=== PATIENT | female | born 2005 | race African-American/Black ===

== ENCOUNTER 2024-04-26 11:19 | Emergency (ER) | payer SELFPAY ==
[~2024-04-26] VITALS: Ht 170.2 cm; Wt 71.8 kg
[2024-04-26 11:20] VITALS: BP 115/69; TEMP 97.9; O2SAT 100
[2024-04-26] MEDS ORDERED: ONDA-282 PO (14:06)
[2024-04-26] MEDS: ONDANSETRON 4MG ORAL DISINTEGRATING TAB PO ONE (14:07)
== END 2024-04-26 14:12 | disposition home or self-care (01) ==
LOC: M ED 11:19
DX: R11.2 Nausea with vomiting, unspecified (principal); R19.7 Diarrhea, unspecified; A05.9 Bacterial foodborne intoxication, unspecified; J45.909 Unspecified asthma, uncomplicated; Z79.83 Long term (current) use of bisphosphonates; Z87.42 Personal history of other diseases of the female genital tract

== ENCOUNTER → 2024-08-14 | Outpatient (REF) ==
[~2024-08-14] MED LIST: ONDA-282 PO
== END ==
LOC: M EMP 08:33
PROVIDERS: ATTEND Family Medicine
DX: Z11.52 Encounter for screening for COVID-19 (principal)

== ENCOUNTER → 2024-09-28 | Outpatient (REF) | LOC: M EMP 07:47 | PROVIDERS: ATTEND Family Medicine | DX: Z01.89 Encounter for other specified special examinations (principal) ==

== ENCOUNTER 2024-10-05 08:12 | Emergency (ER) | payer MEDICAID, OTHER, SELFPAY ==
[~2024-10-05] VITALS: Ht 162.6 cm; Wt 69.3 kg
[2024-10-05] MEDS: IBUPROFEN 600MG TAB PO ONE (11:30)
[2024-10-05 13:18] VITALS: BP 119/87; TEMP 97.2; O2SAT 100
== END 2024-10-05 13:26 | disposition home or self-care (01) ==
LOC: M ED 08:12
DX: J09.X2 Influenza due to identified novel influenza A virus with other respiratory manifestations (principal); S50.02XA Contusion of left elbow, initial encounter; W00.0XXA Fall on same level due to ice and snow, initial encounter; Y92.9 Unspecified place or not applicable; Y93.9 Activity, unspecified; Y99.9 Unspecified external cause status

== ENCOUNTER → 2024-10-05 | Outpatient (REF) | LOC: M EMP 08:20 | PROVIDERS: ATTEND Family Medicine | DX: Z01.89 Encounter for other specified special examinations (principal) ==

== ENCOUNTER 2025-03-02 15:27 | Emergency (ER) | payer OTHER, SELFPAY ==
[~2025-03-02] VITALS: Ht 162.6 cm; Wt 66.0 kg
[2025-03-02 15:44] VITALS: BP 129/84; TEMP 98.2; O2SAT 99
[2025-03-02 16:19] LABS: HEMATOCRIT 39.2 % (36.0-47.0); HEMOGLOBIN 12.6 g/dl (12.0-15.5); MEAN CORPUSCULAR HEMOGLOBIN 29.2 pg (27.0-33.0); MEAN CORPUSCULAR HGB CONC 32.1 g/dl (32.0-36.5); MEAN CORPUSCULAR VOLUME 90.7 fl (80.0-96.0); PLATELET COUNT, AUTOMATED 202 10^3/uL (150-450); RED BLOOD COUNT 4.32 10^6/uL (4.00-5.40); WHITE BLOOD COUNT 7.7 10^3/uL (4.0-10.0)
[2025-03-02 16:41] LABS: AMPHETAMINES LEVEL URINE NEGATIVE (NEGATIVE); BARBITURATES URINE NEGATIVE (NEGATIVE); BENZODIAZEPINES URINE NEGATIVE (NEGATIVE); COCAINE METABOLITE URINE NEGATIVE (NEGATIVE); METHADONE URINE NEGATIVE (NEGATIVE); OPIATES URINE NEGATIVE (NEGATIVE); PHENCYCLIDINE URINE NEGATIVE (NEGATIVE)
[2025-03-02 16:43] LABS: ETHYL ALCOHOL (ETHANOL) < 0.003 % (0.000-0.010)
[2025-03-02 16:45] LABS: ALKALINE PHOSPHATASE 69 U/L (35-104); ALT/SGPT 13 U/L (7.0-40); AST/SGOT 15 U/L (<34); BILIRUBIN,DIRECT < 0.1 MG/DL (<0.4); BILIRUBIN,TOTAL 0.2 MG/DL (0.3-1.2); BLOOD UREA NITROGEN 13 MG/DL (9-23); CALCIUM LEVEL 9.3 MG/DL (8.5-10.1); CARBON DIOXIDE LEVEL 24 MMOL/L (20-31); CHLORIDE LEVEL 107 MMOL/L (98-107); CREATININE FOR GFR 0.68 MG/DL (0.55-1.30); GLOMERULAR FILTRATION RATE > 90.0 (>60); GLUCOSE, FASTING 93 MG/DL (60-100); POTASSIUM SERUM 4.2 MMOL/L (3.5-5.1); SALICYLATE LEVEL < 3.0 MG/DL (<30); SODIUM LEVEL 139 MMOL/L (136-145); TOTAL PROTEIN 7.1 G/DL (5.7-8.2)
[2025-03-02 16:48] LABS: CANNABINOIDS URINE POSITIVE (NEGATIVE); THYROID STIMULATING HORMONE 1.225 uIU/ML (0.55-4.78)
[2025-03-02] MEDS ORDERED: HOME MED LIST COMPLETE! XX SCH (17:35)
[2025-03-02 17:37] LABS: URINE PREG TEST NEGATIVE (NEGATIVE)
== END 2025-03-02 19:26 | disposition home or self-care (01) ==
LOC: M ED 15:27
DX: Z04.6 Encounter for general psychiatric examination, requested by authority (principal)